=== PATIENT | female | born 1995 | race Caucasian/White ===

== ENCOUNTER 2016-05-26 08:47 | Emergency (ER) | payer BC, MEDICAID ==
[2016-05-26 09:11] VITALS: BP 102/59
--- NOTE | 2016-05-26 10:41 | UC ---
Complaint Female HPI - HPI Summary HPI Summary: 20 yo female with a 3 day hx of terminal dysuria/urgency and frequency today noted hematuria no f/c no n/v/d no vag d/c or itch - History Of Current Complaint Chief Complaint: UCGU Stated Complaint: URINARY COMPLAINT Time Seen by Provider: 05/26/16 09:12 Hx Obtained From: Patient Hx Last Menstrual Period: ended 05/17/16 Onset/Duration: Gradual Onset, Lasting Days Timing: Lasting Seconds Severity Initially: Mild Severity Currently: Moderate Pain Intensity: 0 - only has pain with urination Pain Scale Used: 0-10 Numeric Character: Burning Aggravating Factor(s): Urination Alleviating Factor(s): Nothing Associated Signs And Symptoms: Positive: Negative Related Hx: Similar Episode/Dx as: - uti - Allergies/Home Medications Allergies/Adverse Reactions: Allergies Allergy/AdvReac Type Severity Reaction Status Date / Time No Known Allergies Allergy Verified 05/26/16 09:04 Home Medications: Home Medications Ibuprofen [Advil] 600 mg PO ONCE PRN 05/26/16 [History Confirmed 05/26/16] Phenazopyridine HCl [Azo Urinary Pain Relief] 95 mg PO ONCE PRN 05/26/16 [ History Confirmed 05/26/16] PMH/Surg Hx/FS Hx/Imm Hx Previously Healthy: Yes Endocrine History Of: Denies: Diabetes, Thyroid Disease Cardiovascular History Of: Denies: Cardiac Disorders, Hypertension Respiratory History Of: Denies: COPD, Asthma GI/ History Of: Denies: Ulcer - Surgical History Surgical History: Yes Surgery Procedure, Year, and Place: breast lift - Family History Known Family History: Negative: Cardiac Disease, Hypertension, Diabetes - Social History Alcohol Use: Occasionally Substance Use Type: None Smoking Status (MU): Never Smoked Tobacco Review of Systems Constitutional: Negative Skin: Negative Eyes: Negative ENT: Negative Respiratory: Negative Cardiovascular: Negative Gastrointestinal: Negative Genitourinary: Dysuria, Hematuria, Frequency, Urgency Motor: Negative Neurovascular: Negative Musculoskeletal: Negative Neurological: Negative Psychological: Negative All Other Systems Reviewed And Are Negative: Yes Physical Exam Triage Information Reviewed: Yes Appearance: Well-Appearing, No Pain Distress, Well-Nourished Vital Signs: Initial Vital Signs Temp 98.5 F 05/26/16 09:06 Pulse 83 05/26/16 09:06 Resp 16 05/26/16 09:06 BP 102/59 05/26/16 09:06 Pulse Ox 99 05/26/16 09:06 Vital Signs Reviewed: Yes Eyes: Positive: Conjunctiva Clear ENT: Positive: Normal ENT inspection, Pharynx normal, TMs normal. Negative: Nasal congestion, Nasal drainage, Tonsillar swelling, Tonsillar exudate, Trismus , Muffled/hoarse voice Neck: Positive: Nontender, No Lymphadenopathy Respiratory: Positive: Lungs clear, Normal breath sounds, No respiratory distress, No accessory muscle use Cardiovascular: Positive: RRR, No Murmur Musculoskeletal: Positive: Strength Intact, ROM Intact Neurological Exam: Normal Psychological Exam: Normal Skin Exam: Normal Complaint Female Dx - Differential Dx/Diagnosis Provider Diagnoses: UTI Discharge - Discharge Plan Condition: Stable Disposition: HOME Prescriptions: Phenazopyridine TAB* [Pyridium TAB*] 100 mg PO TID #6 tab Sulfamethox/Trimethoprim DS* [Bactrim DS 800/160 TAB*] 1 tab PO BID #14 tab Patient Education Materials: Urinary Tract Infection in Women (ED) Referrals: No Primary Care Phys,NOPCP [Primary Care Provider] - Additional Instructions: recheck for new or worsening symptoms recheck in 2-3 days if not better a urine culture is pending
== END 2016-05-26 10:48 | disposition home or self-care (01) ==
LOC: UCCORT 08:47
DX: N39.0 Urinary tract infection, site not specified (principal); R31.9 Hematuria, unspecified
CPT/HCPCS: 87077; 87086; 87186; 99212; G0463

== ENCOUNTER 2017-12-11 13:29 | Emergency (ER) | payer SELFPAY ==
[2017-12-11 14:18] VITALS: BP 123/68
--- NOTE | 2017-12-11 16:19 | RAD ---
Indication: Chest pain. 2 views of the chest including dual energy PA views demonstrates no mediastinal shift. Heart is of normal size and configuration. Lung albarado are clear. IMPRESSION: No active cardiopulmonary disease is noted.
--- NOTE | 2017-12-11 16:29 | UC ---
Cardiac HPI - HPI Summary HPI Summary: 21-year-old female no past medical history presents with 2 days of chest pain located along the anterior chest that is reproduced with deep inspiration and relieved with expiration. Denies any substernal pain. Denies any radiation to the shoulders, arms, or neck. Denies any diaphoresis. Denies any prior cardiac history. Currently takes oral contraceptives. Denies any recent travel , recent immobilization, leg swelling, leg pain. No history of blood clots in the past. No tobacco use. Denies being . - History of Current Complaint Chief Complaint: UCGeneralIllness Stated Complaint: SOB,SHARP PAIN CHEST WHEN BREATHING Hx Last Menstrual Period: 12/09/17 Pain Intensity: 7 - Allergy/Home Medications Allergies/Adverse Reactions: Allergies Allergy/AdvReac Type Severity Reaction Status Date / Time No Known Allergies Allergy Verified 05/26/16 09:04 Home Medications: Home Medications Norgestimate-Ethinyl Estradiol [Ortho-Cyclen 28 Tablet] 1 each PO DAILY [History Confirmed 12/11/17] PMH/Surg Hx/FS Hx/Imm Hx - Additional Past Medical History Additional PMH: Patient denies any past medical history Previously Healthy: Yes - Surgical History Surgical History: Yes Surgery Procedure, Year, and Place: breast lift AND IMPLANTS IN 2016 - Family History Known Family History: Negative: Cardiac Disease, Hypertension, Diabetes - Social History Alcohol Use: Occasionally Substance Use Type: None Smoking Status (MU): Never Smoked Tobacco Review of Systems Constitutional: Negative Skin: Negative Eyes: Negative Respiratory: Other - Chest pain with deep breathing Cardiovascular: Negative, Chest Pain - Chest with deep breathing Gastrointestinal: Negative Motor: Negative Musculoskeletal: Negative Neurological: Negative All Other Systems Reviewed And Are Negative: Yes Physical Exam - Summary Physical Exam Summary: Gen: alert, in no acute distress HEENT: EOMI, normocephalic, atruamatic Neck: supple, no masses CV: Normal s1 s2, no murmurs, normal distal pulses in both radial and posterior tibial areas bilaterally Resp: normal breath sounds b/l GI: no tenderness, no masses Musculoskeletal: normal ROM all 4 extremities Neuro: no obvious focal neurological deficits Skin: no rash Lymph: no lymphadenopathy Psych: appropriate affect, oriented Triage Information Reviewed: Yes Vital Signs: Initial Vital Signs Temp 36.6 C 12/11/17 14:13 Pulse 89 12/11/17 14:13 Resp 17 12/11/17 14:13 BP 123/68 12/11/17 14:13 Pulse Ox 100 12/11/17 14:13 Diagnostics - Radiology chest x-ray Xray Interpretation: No Acute Changes Radiology Interpretation Completed By: ED Physician - EKG Cardiac Rate: NL - Assessment/Plan Course Of Treatment: I have a very low suspicion of ACS in this patient given history and physical, or score 0, instructed to follow up with primary care physician. Agrees to and understands discharge instructions. No respiratory distress. X-ray negative for any acute findings. - Clinical Impression Provider Diagnoses: Pleuritic chest pain Discharge - Sign-Out/Discharge Documenting (check all that apply): Patient Departure All imaging exams completed and their final reports reviewed: Yes - Discharge Plan Condition: Stable Disposition: HOME Patient Education Materials: Pleurisy (DC) Referrals: Rebeca Brown PA [Primary Care Provider] - Additional Instructions: PLEASE MAKE AN APPOINTMENT TO BE SEEN BY YOUR PRIMARY CARE DOCTOR WITHIN 1-2 WEEKS PLEASE REPORT TO THE ER FOR ANY WORSENING OR CONCERNING SYMPTOMS - Billing Disposition and Condition Condition: STABLE Disposition: Home
== END 2017-12-11 16:34 | disposition home or self-care (01) ==
LOC: UCCORT 13:29
DX: R07.81 Pleurodynia (principal)
CPT/HCPCS: 71046; 93005; 99211; G0463